=== PATIENT | female | born 1960 | race Caucasian/White ===

== ENCOUNTER → 2016-11-28 | Outpatient (CLI) | payer OTHER | LOC: RAD 10:43 | DX: M54.5 Low back pain (principal); M47.896 Other spondylosis, lumbar region | CPT/HCPCS: 72100; 73522 ==

== ENCOUNTER 2020-08-17 11:27 | Inpatient (IN) | payer OTHER ==
[~2020-08-17] VITALS: Ht 175.3 cm; Wt 99.3 kg
[2020-08-17 12:13] LABS: HEMOGLOBIN 13.1 gm/dl (12.3-15.3); RED BLOOD COUNT 4.44 M/UL (4.00-5.10); WHITE BLOOD COUNT 8.1 K/UL (4.5-11.0)
[2020-08-17 12:41] LABS: BUN/CREATININE RATIO 25 (0-10)
[2020-08-17] MEDS ORDERED: VITAMIN B-121000 MC3 PO (15:03)
[2020-08-17] MEDS ORDERED: DECADRON4 MG PO (15:03)
[2020-08-17] MEDS ORDERED: AZITHROMYCIN250 MG PO (15:03)
[2020-08-17] MEDS ORDERED: DOCUSATE SODIU250 MG PO (15:04)
[2020-08-17] MEDS ORDERED: LEXAPRO20 MG PO (15:04)
[2020-08-17] MEDS ORDERED: PROTONIX40 MG PO (15:05)
[2020-08-17] MEDS ORDERED: SINGULAIR10 MG PO (15:05)
[2020-08-17] MEDS ORDERED: PROMETRIUM 200200 MG PO (15:05)
[2020-08-17] MEDS ORDERED: ESTRADIOL1 EAC3 TD (15:05)
[2020-08-17] MEDS ORDERED: ZYRTEC10 MG PO (15:06)
[2020-08-17] MEDS ORDERED: PEPCID40 MG PO (15:06)
[2020-08-17] MEDS ORDERED: ALBUTEROL2.5 MG/3 M INH (15:06)
[2020-08-17] MEDS ORDERED: HYDROXYZINE HCL25 MG PO (15:07)
[2020-08-17] MEDS ORDERED: LINZESS290 MCG PO (15:07)
[2020-08-17] MEDS ORDERED: AZELASTINE137 MCG/0. (15:08)
[2020-08-17] MEDS ORDERED: MIRALAX17 GM PO (15:09)
[2020-08-17] MEDS ORDERED: BENADRYL 25MG C25 MG PO (15:26)
[2020-08-17] MEDS ORDERED: MELATONIN 5 MG1 EAC1 PO (15:27)
[2020-08-17] MEDS ORDERED: NAPROXEN250 MG PO (15:27)
[2020-08-17] MEDS ORDERED: METHOCARBAMOL500 MG PO (15:27)
[2020-08-17] MEDS ORDERED: CYCLOBENZAPRINE10 MG PO (15:28)
[2020-08-18 04:20] LABS: HEMOGLOBIN 12.4 gm/dl (12.3-15.3); RED BLOOD COUNT 4.21 M/UL (4.00-5.10)
[2020-08-18 04:21] LABS: WHITE BLOOD COUNT 5.8 K/UL (4.5-11.0)
[2020-08-18 05:06] LABS: BUN/CREATININE RATIO 25 (0-10)
[2020-08-19 05:30] LABS: HEMOGLOBIN 12.3 gm/dl (12.3-15.3); RED BLOOD COUNT 4.2 M/UL (4.00-5.10); WHITE BLOOD COUNT 6.2 K/UL (4.5-11.0)
[2020-08-19 06:00] LABS: BUN/CREATININE RATIO 22 (0-10)
[2020-08-20 04:07] LABS: HEMOGLOBIN 11.8 gm/dl (12.3-15.3); RED BLOOD COUNT 4.04 M/UL (4.00-5.10); WHITE BLOOD COUNT 4.9 K/UL (4.5-11.0)
[2020-08-20 04:35] LABS: BUN/CREATININE RATIO 26 (0-10)
--- NOTE | 2020-08-20 16:19 | NUR ---
NOTIFIED NOTIFIED OF PATIENT REQUEST TO TAKE TELE OFF TO TAKE A SHOWER. OK TO TAKE TELE OFF TO SHOWER PER MD.
[2020-08-21 04:22] LABS: HEMOGLOBIN 11.9 gm/dl (12.3-15.3); RED BLOOD COUNT 4.21 M/UL (4.00-5.10)
[2020-08-21 04:26] LABS: BUN/CREATININE RATIO 28 (0-10)
[2020-08-21 04:31] LABS: WHITE BLOOD COUNT 6.8 K/UL (4.5-11.0)
[2020-08-22 04:18] LABS: RED BLOOD COUNT 4.2 M/UL (4.00-5.10); WHITE BLOOD COUNT 7.5 K/UL (4.5-11.0)
[2020-08-22 04:41] LABS: BUN/CREATININE RATIO 26 (0-10)
[2020-08-22] MEDS ORDERED: DEXAMETHASONE 44 MG PO (10:58)
--- NOTE | 2020-08-22 11:06 | NUR ---
0813- OXYGEN SATURATION 87% ON ROOM AIR.
== END 2020-08-22 14:29 | disposition home or self-care (01) | DRG 177 ==
LOC: ER1 11:27 → CDU 14:59 → MED SURG 4 14:59
PROVIDERS: Emergency Medicine; Hospitalist; ADMIT Internal Medicine
PROC: XW033E5 Introduction of Remdesivir Anti-infective into Peripheral Vein, Percutaneous Approach, New Technology Group 5 (ICD-10-PCS; principal; 2020-08-18)
PROC: 3E0333Z Introduction of Anti-inflammatory into Peripheral Vein, Percutaneous Approach (ICD-10-PCS; 2020-08-18)
PROC: 8E0ZXY6 Isolation (ICD-10-PCS; 2020-08-18)
DX: U07.1 COVID-19 (principal); J12.82 Pneumonia due to coronavirus disease 2019; J96.01 Acute respiratory failure with hypoxia; J45.901 Unspecified asthma with (acute) exacerbation; E66.9 Obesity, unspecified; Z99.81 Dependence on supplemental oxygen; Z90.49 Acquired absence of other specified parts of digestive tract; Z90.710 Acquired absence of both cervix and uterus; Z87.891 Personal history of nicotine dependence; Z88.2 Allergy status to sulfonamides; Z68.32 Body mass index [BMI] 32.0-32.9, adult
CPT/HCPCS: 36415; 71045; 80053; 81001; 82550; 82553; 82803; 83605; 83735; 83874; 83880; 84484; 85025; 85027; 85379; 86140; 87040; 87081; 87880; 93005; 94760; 96365; 96372; 96374; 96375; 99285; G0378; J0456; J0696; J1100; J1650; J2543; J7030; U0002